=== PATIENT | female | born 1970 | race Caucasian/White ===

== ENCOUNTER 2020-01-28 11:44 | Outpatient (CLI) | payer OTHER, MEDICARE, SELFPAY ==
--- NOTE | 2020-01-28 11:51 | ECG_ITS ---
Measurements Intervals [place] Rate: 76 P: 42 NH: 152 QRS: -5 QRSD: 86 T: 24 QT: 349 QTc: 392 Interpretive Statements SINUS RHYTHM INCOMPLETE RIGHT BUNDLE BRANCH BLOCK LOW QRS VOLTAGE IN PRECORDIAL LEADS BORDERLINE T WAVE ABNORMALITY- ANTERIOR LEADS BASELINE ARTIFACT- I, II, AVR, AVL BORDERLINE ECG Electronically Signed On 01-28-2020 13:31:20 CDT by Grabiel Lou D.O.
[2020-01-28 12:35] LABS: Blood Urea Nitrogen 8 mg/dL (7-17); Calcium 9.8 mg/dL (8.4-10.2); Carbon Dioxide 25 mmol/L (22-30); Chloride 101 mmol/L (98-107); Estimated Glomerular Filt Rate > 60; Glucose 152 mg/dL (65-105); Potassium 4.5 mmol/L (3.4-5.0); Sodium 139 mmol/L (137-145)
== END 2020-01-28 11:45 | disposition home or self-care (01) ==
PROVIDERS: Anesthesiology; PCP Physician Assistant; Visit Provider Urology
DX: N39.3 Stress incontinence (female) (male) (principal); E11.9 Type 2 diabetes mellitus without complications; I10 Essential (primary) hypertension; I45.10 Unspecified right bundle-branch block
CPT/HCPCS: 36415; 80048; 87086; 87088; 93005

== ENCOUNTER 2020-02-05 00:44 | Outpatient (CLI) | payer OTHER, MEDICARE, SELFPAY ==
[2020-02-05 19:19] LABS: SARS-CoV-2 RNA PCR Negative
== END 2020-02-05 00:45 | disposition home or self-care (01) ==
LOC: ANHCOVIDDT 00:45
PROVIDERS: Visit Provider Urology
DX: Z01.812 Encounter for preprocedural laboratory examination (principal); Z11.59 Encounter for screening for other viral diseases
CPT/HCPCS: 87635; C9803; U0003

== ENCOUNTER 2020-02-07 01:05 | Day surgery (SDC) | payer OTHER, MEDICARE, SELFPAY ==
[2020-01-21 15:29] VITALS: BMI 34.0
--- NOTE | 2020-02-06 11:04 | WPDANESEPPF ---
Anes - Initial Pre Proc Eval Procedure: Operation Date: 02/07/20 09:00 Proposed Procedures p Rectocele Repair, - Oj Diez MD s Urethral Sling - Oj Diez MD Date/Time: 02/06/20 11:04 Surgeon: Oj Diez MD Pre Op Diagnosis: Rectocele, Stress Incontinence Patient Data Age: 49 Gender: F Height: 1.63 m Weight: 89.81 kg Allergies Allergy/AdvReac Type Severity Reaction Status Date / Time No Known Allergies Allergy Verified 02/07/20 07:40 Home Medications Medication Instructions Recorded Confirmed Type atenolol 25 mg PO HS 01/21/20 02/07/20 History atorvastatin 10 mg PO DAILY 01/21/20 02/07/20 History buspirone 5 mg PO TID 01/21/20 02/07/20 History cetirizine [Zyrtec] 10 mg PO DAILY 01/21/20 02/07/20 History cholecalciferol (vitamin D3) 100 mcg PO DAILY 01/21/20 02/07/20 History [Vitamin D3] cyanocobalamin (vitamin B-12) 2,000 mcg PO DAILY 01/21/20 02/07/20 History [Vitamin B-12] estradiol-norethindrone acet 1 tablet PO DAILY 01/21/20 02/07/20 History gabapentin 900 mg PO QPM 01/21/20 02/07/20 History lamotrigine [Lamictal] 100 mg PO HS 01/21/20 02/07/20 History lisinopril 5 mg PO TID 01/21/20 02/07/20 History metformin 500 mg PO BID 01/21/20 02/07/20 History multivitamin 1 tablet PO DAILY 01/21/20 02/07/20 History prazosin 2 mg PO HS 01/21/20 02/07/20 History quetiapine [Seroquel] 300 mg PO HS 01/21/20 02/07/20 History ropinirole 1 mg PO HS 01/21/20 02/07/20 History Patient hx anesthesia problems: none Family hx anesthesia problems: none PMFSH Past Medical History Medical History (Updated 02/05/20 @ 12:27 by Marty Dodson DO) Anxiety Depression Diabetes type 2, controlled Hypercholesteremia Hypertension Neuropathy RLS (restless legs syndrome) Tachycardia Surgical History Surgical History (Updated 02/05/20 @ 12:27 by Marty Dodson DO) History of appendectomy Social History Social History Smoking status: Never smoker Spiritual care concerns: No Anes - Eval Final PreProcedure Day of Procedure 02/06/20 11:04 Patient weight: obese Heart: regular rate and rhythm Lungs: clear to auscultation and normal air movement Airway: Mallampati scale class II Neurological: alert and oriented Last oral intake: >/= 8 hours ASA classification: III Emergent: no Anesthetic plan: proceed Anesthesia type and monitoring: general LMA and standard monitoring Informed Consent: The patient's anesthetic plan and its attendant risks and benefits were discussed with the patient/family/POA. Questions were solicited and answers provided to the satisfaction of the patient/family/POA.
[2020-02-07] VITALS (7 sets, daily range): BP systolic 91–135; BP diastolic 53–78; PULSE 80–118; RESP 8–18; TEMP 36.1–36.7; O2SAT 97–100
[2020-02-07 07:16] LABS: Glucose Point of Care 151 (65-105)
--- NOTE | 2020-02-07 07:16 | WPDHPUPDATE1 ---
History and Physical Update Update Date/Time: 02/07/20 07:16 History and Physical has been reviewed, including an updated exam of the patient. There are NO changes in the patient's condition. Risks, benefits, and alternatives have been discussed and questions answered. Patient agrees to proceed with procedure.
[2020-02-07] MEDS: LACTATED RINGERS 1,000 ML 30 ML IV CONT (07:17)
[2020-02-07] MEDS: ceFAZolin 2 GM/D5W 50 ML 2 GM/50 ML BAG IVPB (08:37)
[2020-02-07] MEDS: BUPIVACAINE/EPINEPHRINE 0.25% 50 ML VIAL INFILTRATE (09:06)
--- NOTE | 2020-02-07 09:36 | PM.PROC ---
Procedure Note - Detailed Date of procedure: 02/07/20 Pre-op diagnosis: Rectocele, Stress Incontinence rectocele, stress incontinence, female perineal laxity Post-op diagnosis: same Procedure performed: rectocele repair of, the perineoplasty, mid urethral sling. Description of procedure: she was correctly identified informed consents obtained. From the operating room. She was given general anesthesia. She was placed in dorsal lithotomy position. Genitalia for further sterile fashion. Time-out performed. A place Ardon catheter. I placed a [place] retractor. I grasped the rectocele the Allis clamps. I infiltrated the subcutaneous tissues. I made a midline vaginal incision. I dissected the mucosa off the underlying fascial structures laterally and back towards the apex. I performed a standard plication rectocele repair. I used 0 Vicryl sutures. I trimmed excess vaginal mucosa. I closed the Vaginal mucosa with a running 2 Vicryl suture. I anesthetized the kimberly-shaped area of the perineum. I removed this area of skin. I performed a perineal or fever using 0 Vicryl suture. I used 2 0 Vicryl closing mucosa. There is excellent rectocele and perineal support. There was no undue narrowing of the vagina. I marked out my thigh incisions. I anesthetized the skin and made those incisions. I anesthetized the anterior vaginal wall with the urethra. A midline incision. I dissected out laterally taking great care not to injure the refill vaginal wall. Passed helical trocars. First on the left. Then on the right. From the thigh incision towards the vaginal incision. I connected the sling to the trocars and brought out through the thigh incision. I tensioned sling appropriately. I cut and the plastic sheaths. I then closed the incision with 2 Vicryl. On cystoscopy she had no tumors, stones, trabeculations, abnormal red patches, foreign bodies ureteral orifices are normal. No surgical artifact in the bladder or urethra. I cut the excess sling material. Close incision with glue. She is awakened and transferred to PACU in stable condition. Anesthesia: GLMA Surgeon: Oj Diez MD Estimated blood loss (mL): 20 Drains: No Packing: No Pathology: none sent Complications: No immediate complications Condition: stable Disposition: PACU
[2020-02-07 09:44] LABS: Glucose Point of Care 131 (65-105)
--- NOTE | 2020-02-07 10:33 | SUR.PHASEII ---
1020- ambulated to bathroom. voided .mesh underwear.
== END 2020-02-07 11:14 | disposition home or self-care (01) ==
PROVIDERS: Visit Provider Urology
PROC: 0JQC0ZZ Repair Pelvic Region Subcutaneous Tissue and Fascia, Open Approach (ICD-10-PCS; CPT 45560; principal; 2020-02-07 09:00)
DX: N81.6 Rectocele (principal); R15.2 Fecal urgency; N39.3 Stress incontinence (female) (male); N90.89 Other specified noninflammatory disorders of vulva and perineum; E11.40 Type 2 diabetes mellitus with diabetic neuropathy, unspecified; Z79.84 Long term (current) use of oral hypoglycemic drugs; I10 Essential (primary) hypertension; E78.00 Pure hypercholesterolemia, unspecified; G25.81 Restless legs syndrome; F32.9 Major depressive disorder, single episode, unspecified; F41.9 Anxiety disorder, unspecified; Z79.899 Other long term (current) drug therapy
CPT/HCPCS: 45560; 57288; 56810; 87635; A9270; C1771; C9803; J0690; J1100; J2250; J2405; J2704; J3010; J7030; J7120; U0003